=== PATIENT | male | born 1970 | race Caucasian/White ===

== ENCOUNTER 2024-02-16 08:43 | Outpatient (CLI) | payer OTHER | END 2024-02-16 23:59 | disposition home or self-care (01) | LOC: MRI 08:43 | PROVIDERS: ATTEND Student in an Organized Health Care Education/Training Program | DX: S46.812A Strain of other muscles, fascia and tendons at shoulder and upper arm level, left arm, initial encounter (principal); M75.122 Complete rotator cuff tear or rupture of left shoulder, not specified as traumatic; M25.512 Pain in left shoulder; M67.912 Unspecified disorder of synovium and tendon, left shoulder; M89.312 Hypertrophy of bone, left shoulder; R60.0 Localized edema; X58.XXXA Exposure to other specified factors, initial encounter; Y93.89 Activity, other specified; Y92.89 Other specified places as the place of occurrence of the external cause; Y99.8 Other external cause status | CPT/HCPCS: 73221 ==